=== PATIENT | female | born 1945 | race Two or more races ===

== ENCOUNTER 2023-12-04 23:00 | Emergency (ER) | payer MEDICARE ==
[~2023-12-04] VITALS: Ht 160 cm; Wt 60.0 kg
[2023-12-04] MEDS: IPRATROPIUM BROM 0.5 MG/2.5ML INH SOL NEB ONE (23:27)
[2023-12-04] MEDS: ALBUTEROL SULF 2.5 MG/0.5ML(0.5%) NEB SOLN NEB ONE (23:27)
[2023-12-04 23:38] LABS: Basophils # (auto) 0 10 ^3/uL (0-0.2); Basophils % (auto) 0.3 % (0.0-2.0); Eosinophils # (auto) 0.1 10 ^3/uL (0-0.8); Eosinophils % (auto) 1.2 % (0.0-7.0); Hematocrit 32.3 % (36.0-46.0); Hemoglobin 10.5 g/dL (12.2-16.2); Lymphocytes % (auto) 11.7 % (10.0-50.0); Mean Corpuscular Hemoglobin 28.4 pg (28.0-32.0); Mean Corpuscular Hgb Conc. 32.4 g/dL (32.0-36.0); Mean Corpuscular Volume 87.6 fL (80.0-100.0); Neutrophils # (auto) 6.7 10 ^3/uL (1.6-8.6); Neutrophils % (auto) 75.8 % (37.0-80.0); Red Blood Cells 3.69 10^6/uL (4.0-5.20); Red Cell Distribution Width 14.8 % (11.8-14.3); White Blood Cell 8.8 10^3/uL (4.4-10.8)
[2023-12-04 23:53] LABS: Alanine Aminotransferase 16 U/L (7-40); Albumin 3.9 g/dL (3.2-4.8); Alkaline Phosphatase 161 U/L (46-116); Anion Gap 6 (5-15); Aspartate Aminotransferase 24 U/L (13-40); Bilirubin, Total 0.5 mg/dL (0.2-1.0); Blood Urea Nitrogen 11 mg/dL (9-23); Calcium 8.6 mg/dL (8.7-10.4); Carbon Dioxide 26 mmol/L (20-30); Chloride 104 mmol/L (98-107); Glucose 126 mg/dL (74-106); Potassium 3.9 mmol/L (3.5-5.1); Sodium 136 mmol/L (136-145); Total Protein 6.6 g/dL (5.7-8.2)
[2023-12-05 00:25] VITALS: BP 114/66; RESP 16; TEMP 98.5; O2SAT 95
[2023-12-05] MEDS ORDERED: AZIT500T66 PO (00:28)
[2023-12-05] MEDS ORDERED: TIOTCAP IN (00:28)
[2023-12-05] MEDS ORDERED: ALBU108A5 IN (00:28)
[2023-12-05] MEDS: AZITHROMYCIN 250 MG TAB PO ONE (00:30)
[2023-12-05] MEDS: DexAMETHasone SOD PHOS 10MG/1ML VIAL INJ IM ONE (00:31)
[2023-12-05 01:11] VITALS: PULSE 117
== END 2023-12-05 00:49 | disposition home or self-care (01) ==
LOC: ER 23:00
DX: J18.9 Pneumonia, unspecified organism (principal); J44.9 Chronic obstructive pulmonary disease, unspecified
CPT/HCPCS: 36415; 71045; 80053; 83605; 83880; 85025; 85379; 93005; 94640; 96372; 99285; J1100; J7644